=== PATIENT | male | born 1995 | race Caucasian/White ===

== ENCOUNTER 2021-09-21 10:42 | Emergency (ER) | payer SELFPAY ==
[2021-09-21 10:51] VITALS: BP 145/84; PULSE 86; RESP 24; TEMP 35.8; O2SAT 100
[2021-09-21 11:11] VITALS: BP 131/95; PULSE 114; RESP 24; O2SAT 100
[2021-09-21 11:17] VITALS: TEMP 36.4
--- NOTE | 2021-09-21 11:17 | ED_ITS ---
Documented by User: JACQUELIN Ibarra 09/22/21 07:25 HPI - Nausea/Vomiting/Diarrhea General: Chief complaint: Abdominal Pain Stated complaint: Throwing up blood, stomach cramps, SOB Time Seen by Provider: 09/21/21 10:57 History of Present Illness: Patient is a 26-year-old male who comes to the ED with nausea vomiting and abdominal cramping. Symptoms started 2 days ago. He has had nausea and vomiting for 2 days. Denies any known sick contacts. His symptoms improved when taking a hot shower. He also reports having some abdominal cramping pain that is generalized throughout the abdomen. Patient does admit to being a daily marijuana user. He reports having a little bit of diarrhea yesterday. Denies any fever, body aches. Associated nausea: Yes Associated symtoms: Reports nausea; Denies change in vision, chest pain, dysuria, fatigue, headache(s) or palpitations Review of Systems Const: Denies: fever(s), chills or fatigue Eyes: Denies: change in vision or eye discomfort ENMT: Denies: throat pain, odynophagia, nasal discharge or nasal congestion Card: Denies: chest pain, palpitations, edema, swelling of feet/ankles, dyspnea on exertion or orthopnea Resp: Denies: dyspnea, productive cough or non-productive cough GI: Reports: nausea, vomiting, diarrhea and GI cramping; Denies: abdominal pain, constipation or hematochezia : Denies: flank pain, difficulty urinating, dysuria or hematuria Musc: Denies: neck pain, back pain or extremity swelling Skin/Breast: Denies: rash or new lesions Neuro: Denies: headache(s), numbness in extremities or weakness in extremities PFS ED PFSH: Medical History No pertinent family history Surgical History No pertinent past surgical history Physical Exam Const: COMMON NORMALS: patient oriented x3 and alert GENERAL APPEARANCE: cooperative and in distress (Patient appears sick and is actively vomiting during exam) HENMT: COMMON NORMALS: normocephalic HEAD & SCALP: normocephalic MOUTH: Normal oral and palatal mucosa present THROAT: posterior oropharynx normal and uvula midline Neck/C-Spine: COMMON NORMALS: supple GENERAL: Yes normal visual inspection Resp: COMMON NORMALS: normal respiratory effort, No retractions, No use of accessory muscles and clear to auscultation bilaterally AUSCULTATION: clear to auscultation bilaterally Cardio: COMMON NORMALS: regular rate, regular rhythm, S1 normal heart sound present, S2 normal heart sound present, No gallops present (Cardio), No clicks present (Cardio), No murmurs present (Cardio) and Peripheral pulses 2+ throughout RATE: regular rate RHYTHM: regular rhythm HEART SOUNDS: S1 normal heart sound present and S2 normal heart sound present PERIPHERAL PULSES: Peripheral pulses 2+ throughout GI: COMMON NORMALS: Normal to inspection, nondistended, normoactive bowel sounds present, Soft to palpation and no masses PALPATION: Yes Soft to palpation and Yes Tenderness to palpation present (GI) (Mild generalized throughout abdomen) : COMMON NORMALS: Yes no CVA tenderness BLADDER/KIDNEY EXAM: Yes no CVA tenderness Back/Pelvis: COMMON NORMALS: no CVA tenderness Extremity: COMMON NORMALS: normal to inspection Neuro: COMMON NORMALS: patient oriented x3 SENSORIUM/ORIENTATION: Yes alert GAIT: Yes Normal gait present Skin: GENERAL SKIN EXAM: dry skin Course Vital Signs: Vital signs: Vital Signs Temperature 97.6 F 09/21/21 11:17 Pulse Rate 78 09/21/21 14:53 Respiratory Rate 19 H 09/21/21 13:00 Blood Pressure 152/75 09/21/21 14:53 Pulse Oximetry 98 09/21/21 14:53 MDM - Nausea/Vomiting/Diarrhea Medical Decision Making Patient is a 26-year-old male who comes to the ED with nausea and vomiting and abdominal cramps. Symptoms started approximately 2 days ago. He admits to being a chronic daily marijuana user. He says that his only relief in symptoms is when he was taking a hot shower. Vital stable. Patient does appear ill and is actively vomiting during history and physical exam. He has some mild generalized tenderness throughout the abdomen but rest of exam is benign. White blood cell count 13.1. CBC, CMP and lipase are unremarkable. UA showed no signs of infection. Urine drug screen was positive for THC. CT of abdomen pelvis showed some mild gastroenteritis. Patient was given 2 L of IV fluids and some nausea meds and we were able to get his nausea and vomiting controlled. He could keep p.o. fluids down here in the ED, so he was stable for discharge home. He was diagnosed with cannabinoid hyperemesis syndrome and sent home with a prescription for Zofran. Patient also did not have a primary care physician and wanted me to refer him to PCP to get established with. I placed an order with case management for patient to be set up with a PCP. Return to ED precautions given. Patient understood and agreed with plan. Lab Data I reviewed the patient's lab results. : 09/21/21 11:16 09/21/21 11:16 Radiology Impressions Abdomen/Pelvis CT 09/21/21 11:38 IMPRESSION: 1. Mild diffuse mucosal thickening and hyperemia throughout the stomach and a very small amount of increased fluid in the distal small bowel and hyperemia of the vasa recta. Findings are most consistent with a mild gastroenteritis. 2. No ascites. 3. Normal appendix. 4. No adenopathy. Laboratory Results WBC 13.1 10^3/uL (4.0-10.0) H 09/21/21 11:16 RBC 5.56 10^6/uL (4.1-5.3) H 09/21/21 11:16 Hgb 17.3 g/dL (11.7-16.6) H 09/21/21 11:16 Hct 48.0 % (42.0-52.0) 09/21/21 11:16 MCV 86.3 fl (80-94) 09/21/21 11:16 MCH 31.1 pg (28.0-34.0) 09/21/21 11:16 MCHC 36.0 g/dL (30.0-36.0) 09/21/21 11:16 RDW 12.2 % (12.1-15.1) 09/21/21 11:16 Plt Count 280 10^3/cmm (130-400) 09/21/21 11:16 MPV 10.8 fL (7.4-10.4) H 09/21/21 11:16 Neut % (Auto) 76.1 % 09/21/21 11:16 Lymph % (Auto) 14.4 % 09/21/21 11:16 [place] % (Auto) 5.0 % 09/21/21 11:16 Eos % (Auto) 0.4 % 09/21/21 11:16 Baso % (Auto) 0.4 % 09/21/21 11:16 Neut # (Auto) 9.97 10^3/uL (1.8-7.7) H 09/21/21 11:16 Lymph # (Auto) 1.9 10^3/uL (0.8-4.8) 09/21/21 11:16 [place] # (Auto) 0.7 10^3/uL (0.2-0.9) 09/21/21 11:16 Eos # (Auto) 0.1 10^3/uL (0.0-0.8) 09/21/21 11:16 Baso # (Auto) 0.1 10^3/uL (0.0-0.1) 09/21/21 11:16 Nucleated RBC % (auto) 0 % 09/21/21 11:16 Nucleated RBCs # 0.0 /100WBC 09/21/21 11:16 Sodium 136 mmol/L (136-145) 09/21/21 11:16 Potassium 3.6 mmol/L (3.5-5.1) 09/21/21 11:16 Chloride 96 mmol/L (98-107) L 09/21/21 11:16 Carbon Dioxide 21 mmol/L (22-29) L 09/21/21 11:16 Anion Gap 22.6 (5-19) H 09/21/21 11:16 BUN 14 mg/dL (6-20) 09/21/21 11:16 Creatinine 1.0 mg/dL (0.7-1.2) 09/21/21 11:16 GFR Calculation 91.8 mL/min (90-130) 09/21/21 11:16 Glucose 123 mg/dL (65-115) H 09/21/21 11:16 Calculated Osmolality 284 mOsm/kg (285-295) L 09/21/21 11:16 Calcium 10.0 mg/dL (8.5-10.5) 09/21/21 11:16 Total Bilirubin 2.2 mg/dL (0.15-1.2) H 09/21/21 11:16 AST 25 U/L (0-40) 09/21/21 11:16 ALT 32 U/L (0-41) 09/21/21 11:16 Alkaline Phosphatase 84 IU/L (40-130) 09/21/21 11:16 Total Protein 8.4 g/dL (6.6-8.7) 09/21/21 11:16 Albumin 5.6 g/dL (3.5-5.2) H 09/21/21 11:16 Globulin 2.8 g/dL (1.3-4.6) 09/21/21 11:16 Lipase 22 U/L (13-60) 09/21/21 11:16 Urine Color Dark yellow (Yellow) 09/21/21 11:20 Urine Appearance Clear (CLEAR) 09/21/21 11:20 Urine pH 6.5 (5-7) 09/21/21 11:20 Ur Specific [place] 1.010 (1.005-1.030) 09/21/21 11:20 Urine Protein Neg (Negative) 09/21/21 11:20 Urine Glucose (UA) Norm (Normal) 09/21/21 11:20 Urine Ketones Negative (Negative) 09/21/21 11:20 Urine Blood Neg (Negative) 09/21/21 11:20 Urine Nitrate Negative (Negative) 09/21/21 11:20 Urine Bilirubin 1+ (Negative) H 09/21/21 11:20 Urine Urobilinogen 4 mg/dL (Negative) H 09/21/21 11:20 Ur Leukocyte Esterase Negative (Negative) 09/21/21 11:20 Urine Opiates Screen Negative ng/mL (Negative) 09/21/21 11:20 Ur Barbiturates Screen Negative ng/mL (Negative) 09/21/21 11:20 Ur Phencyclidine Scrn Negative ng/mL (Negative) 09/21/21 11:20 Ur Amphetamines Screen Negative ng/mL (Negative) 09/21/21 11:20 U Benzodiazepines Scrn Negative ng/mL (Negative) 09/21/21 11:20 Urine Cocaine Screen Negative ng/mL (Negative) 09/21/21 11:20 U Marijuana (THC) Screen Positive ng/mL (Negative) H 09/21/21 11:20 Discharge Plan Discharge Patient Disposition: Home Clinical Impression: Cannabinoid hyperemesis syndrome Condition: Stable Prescriptions: New ondansetron 4 mg tablet,disintegrating 4 mg PO Q8H PRN (Reason: nausea and vomiting) Qty: 15 0RF No Action Pepto-Bismol 262 mg/15 mL Suspension 262 - 524 mg PO PRN 0RF Discharge Orders: Discharge ED (Routine); Ordered 09/21/21 Ordered By: Morales Meléndez Referrals: Brent Blevins RN [Family Provider] - Discharge Diet: Regular Discharge Activity: Increase activity as tolerated Patient Instructions: Acute Nausea and Vomiting (ED) Activity Restrictions/Additional Instructions: Follow-up with medical provider as directed. Case management should contact you in the next several days to set up an appointment with a primary care physician. Make sure drink plenty fluids and stay hydrated. Take medications as prescribed. Return to the ER or your medical provider if condition worsens. Please read and understand discharge instructions. Thank you for choosing [facility] for your healthcare needs today. Please realize this is an emergency room and that we are providing you with a medical screening exam and this may not be complete and all inclusive of all the testing and or work up that you may need to determine your ailment or severity of your illness. It is very important that you follow up as instructed or that you return to the Emergency Department should you have concerns or if your condition changes or worsens in any way. Coding Level of Care Code ED Technical Designer for Chg Fwd Exam Comprehensive Documented by User: Edd Perez DO 09/22/21 08:31 HPI - Nausea/Vomiting/Diarrhea General: Chief complaint: Abdominal Pain Stated complaint: Throwing up blood, stomach cramps, SOB Time Seen by Provider: 09/21/21 10:57 [facility] ED PFSH: Medical History No pertinent family history Surgical History No pertinent past surgical history Course Vital Signs: Vital signs: Vital Signs Temperature 97.6 F 09/21/21 11:17 Pulse Rate 78 09/21/21 14:53 Respiratory Rate 19 H 09/21/21 13:00 Blood Pressure 152/75 09/21/21 14:53 Pulse Oximetry 98 09/21/21 14:53 MDM - Nausea/Vomiting/Diarrhea Medical Decision Making Patient is a 26-year-old male who comes to the ED with nausea and vomiting and abdominal cramps. Symptoms started approximately 2 days ago. He admits to being a chronic daily marijuana user. He says that his only relief in symptoms is when he was taking a hot shower. Vital stable. Patient does appear ill and is actively vomiting during history and physical exam. He has some mild generalized tenderness throughout the abdomen but rest of exam is benign. White blood cell count 13.1. CBC, CMP and lipase are unremarkable. UA showed no signs of infection. Urine drug screen was positive for THC. CT of abdomen pelvis showed some mild gastroenteritis. Patient was given 2 L of IV fluids and some nausea meds and we were able to get his nausea and vomiting controlled. He could keep p.o. fluids down here in the ED, so he was stable for discharge home. He was diagnosed with cannabinoid hyperemesis syndrome and sent home with a prescription for Zofran. Patient also did not have a primary care physician and wanted me to refer him to PCP to get established with. I placed an order with case management for patient to be set up with a PCP. Return to ED precautions given. Patient understood and agreed with plan. Chart reviewed and patient discussed with midlevel. Agree with assessment and plan. Lab Data : 09/21/21 11:16 09/21/21 11:16 Radiology Impressions Abdomen/Pelvis CT 09/21/21 11:38 IMPRESSION: 1. Mild diffuse mucosal thickening and hyperemia throughout the stomach and a very small amount of increased fluid in the distal small bowel and hyperemia of the vasa recta. Findings are most consistent with a mild gastroenteritis. 2. No ascites. 3. Normal appendix. 4. No adenopathy. Laboratory Results WBC 13.1 10^3/uL (4.0-10.0) H 09/21/21 11:16 RBC 5.56 10^6/uL (4.1-5.3) H 09/21/21 11:16 Hgb 17.3 g/dL (11.7-16.6) H 09/21/21 11:16 Hct 48.0 % (42.0-52.0) 09/21/21 11:16 MCV 86.3 fl (80-94) 09/21/21 11:16 MCH 31.1 pg (28.0-34.0) 09/21/21 11:16 MCHC 36.0 g/dL (30.0-36.0) 09/21/21 11:16 RDW 12.2 % (12.1-15.1) 09/21/21 11:16 Plt Count 280 10^3/cmm (130-400) 09/21/21 11:16 MPV 10.8 fL (7.4-10.4) H 09/21/21 11:16 Neut % (Auto) 76.1 % 09/21/21 11:16 Lymph % (Auto) 14.4 % 09/21/21 11:16 [place] % (Auto) 5.0 % 09/21/21 11:16 Eos % (Auto) 0.4 % 09/21/21 11:16 Baso % (Auto) 0.4 % 09/21/21 11:16 Neut # (Auto) 9.97 10^3/uL (1.8-7.7) H 09/21/21 11:16 Lymph # (Auto) 1.9 10^3/uL (0.8-4.8) 09/21/21 11:16 [place] # (Auto) 0.7 10^3/uL (0.2-0.9) 09/21/21 11:16 Eos # (Auto) 0.1 10^3/uL (0.0-0.8) 09/21/21 11:16 Baso # (Auto) 0.1 10^3/uL (0.0-0.1) 09/21/21 11:16 Nucleated RBC % (auto) 0 % 09/21/21 11:16 Nucleated RBCs # 0.0 /100WBC 09/21/21 11:16 Sodium 136 mmol/L (136-145) 09/21/21 11:16 Potassium 3.6 mmol/L (3.5-5.1) 09/21/21 11:16 Chloride 96 mmol/L (98-107) L 09/21/21 11:16 Carbon Dioxide 21 mmol/L (22-29) L 09/21/21 11:16 Anion Gap 22.6 (5-19) H 09/21/21 11:16 BUN 14 mg/dL (6-20) 09/21/21 11:16 Creatinine 1.0 mg/dL (0.7-1.2) 09/21/21 11:16 GFR Calculation 91.8 mL/min (90-130) 09/21/21 11:16 Glucose 123 mg/dL (65-115) H 09/21/21 11:16 Calculated Osmolality 284 mOsm/kg (285-295) L 09/21/21 11:16 Calcium 10.0 mg/dL (8.5-10.5) 09/21/21 11:16 Total Bilirubin 2.2 mg/dL (0.15-1.2) H 09/21/21 11:16 AST 25 U/L (0-40) 09/21/21 11:16 ALT 32 U/L (0-41) 09/21/21 11:16 Alkaline Phosphatase 84 IU/L (40-130) 09/21/21 11:16 Total Protein 8.4 g/dL (6.6-8.7) 09/21/21 11:16 Albumin 5.6 g/dL (3.5-5.2) H 09/21/21 11:16 Globulin 2.8 g/dL (1.3-4.6) 09/21/21 11:16 Lipase 22 U/L (13-60) 09/21/21 11:16 Urine Color Dark yellow (Yellow) 09/21/21 11:20 Urine Appearance Clear (CLEAR) 09/21/21 11:20 Urine pH 6.5 (5-7) 09/21/21 11:20 Ur Specific [place] 1.010 (1.005-1.030) 09/21/21 11:20 Urine Protein Neg (Negative) 09/21/21 11:20 Urine Glucose (UA) Norm (Normal) 09/21/21 11:20 Urine Ketones Negative (Negative) 09/21/21 11:20 Urine Blood Neg (Negative) 09/21/21 11:20 Urine Nitrate Negative (Negative) 09/21/21 11:20 Urine Bilirubin 1+ (Negative) H 09/21/21 11:20 Urine Urobilinogen 4 mg/dL (Negative) H 09/21/21 11:20 Ur Leukocyte Esterase Negative (Negative) 04/26/22 11:20 Urine Opiates Screen Negative ng/mL (Negative) 09/21/21 11:20 Ur Barbiturates Screen Negative ng/mL (Negative) 09/21/21 11:20 Ur Phencyclidine Scrn Negative ng/mL (Negative) 09/21/21 11:20 Ur Amphetamines Screen Negative ng/mL (Negative) 09/21/21 11:20 U Benzodiazepines Scrn Negative ng/mL (Negative) 09/21/21 11:20 Urine Cocaine Screen Negative ng/mL (Negative) 09/21/21 11:20 U Marijuana (THC) Screen Positive ng/mL (Negative) H 09/21/21 11:20 Discharge Plan Discharge Patient Disposition: Home Clinical Impression: Cannabinoid hyperemesis syndrome Condition: Stable Prescriptions: New ondansetron 4 mg tablet,disintegrating 4 mg PO Q8H PRN (Reason: nausea and vomiting) Qty: 15 0RF No Action Pepto-Bismol 262 mg/15 mL Suspension 262 - 524 mg PO PRN 0RF Discharge Orders: Discharge ED (Routine); Ordered 09/21/21 Ordered By: Morales Meléndez Referrals: Brent Blevins RN [Family Provider] - Discharge Diet: Regular Discharge Activity: Increase activity as tolerated Patient Instructions: Acute Nausea and Vomiting (ED) Activity Restrictions/Additional Instructions: Follow-up with medical provider as directed. Case management should contact you in the next several days to set up an appointment with a primary care physician. Make sure drink plenty fluids and stay hydrated. Take medications as prescribed. Return to the ER or your medical provider if condition worsens. Ple ase read and understand discharge instructions. Thank you for choosing [facility] for your healthcare needs today. Please realize this is an emergency room and that we are providing you with a medical screening exam and this may not be complete and all inclusive of all the testing and or work up that you may need to determine your ailment or severity of your illness. It is very important that you follow up as instructed or that you return to the Emergency Department should you have concerns or if your condition changes or worsens in any way. Coding Level of Care Code ED Technical Designer for Silva Fwchristina Exam Comprehensive
[2021-09-21] MEDS: metoclopramide 5 mg/mL SDV 2 mL 10 MG IVP (11:22)
[2021-09-21] MEDS: sodium chloride 0.9% 1,000 ML 999 ML IV ×2 (11:22→12:29)
[2021-09-21] MEDS: haloperidol inj 5 mg/mL INJ 1 mL 2.5 MG IVP (11:22)
[2021-09-21 11:24] LABS: Basophils # 0.1 10^3/uL (0.0-0.1); Basophils % 0.4 %; Eosinophils # 0.1 10^3/uL (0.0-0.8); Eosinophils % 0.4 %; Hemoglobin 17.3 g/dL (11.7-16.6); Lymphocytes # 1.9 10^3/uL (0.8-4.8); Lymphocytes % 14.4 %; Mean Corpuscular Hemoglobin 31.1 pg (28.0-34.0); Mean Corpuscular Volume 86.3 fl (80-94); Mean Platelet Volume 10.8 fL (7.4-10.4); Monocytes # 0.7 10^3/uL (0.2-0.9); Neutrophils # 9.97 10^3/uL (1.8-7.7); Neutrophils % 76.1 %; Nucleated Red Blood Cells % 0 %; Platelet Count 280 10^3/cmm (130-400); Red Blood Count 5.56 10^6/uL (4.1-5.3); Red Cell Distribution Width 12.2 % (12.1-15.1); White Blood Count 13.1 10^3/uL (4.0-10.0)
[2021-09-21 11:30] VITALS: BP 135/81; PULSE 61; RESP 15; O2SAT 92
--- NOTE | 2021-09-21 11:38 | CT_ITS ---
WS: [id number] CT ABDOMEN AND PELVIS WITH CONTRAST HISTORY: n/v and abdominal cramping pain TECHNIQUE: Imaging performed of the abdomen and pelvis with IV contrast. Single phase imaging of the abdomen. Coronal and sagittal reformats are submitted. All CT scans at [facility] use at [facility] [facility] one of these dose optimization techniques: automated exposure control; mA and/or kV adjustment per patient size (includes targeted exams where dose is matched to clinical indication); or iterative re construction. IV CONTRAST: Omnipaque 300; 95 mL IV. Oral contrast: No DLP: 1492.94 mGy.cm COMPARISON: None available. Lower thorax: Lung bases are clear. Heart is normal size. No hiatal hernia. Liver/biliary system: Normal size with no intrahepatic dilatation. Gallbladder: Normal. No gallstones or wall thickening. No pericholecystic fluid. Pancreas: Normal size pancreas and pancreatic duct. No adjacent inflammation. Spleen: Normal size spleen. No mass or infarct. Adrenal glands: Normal. Right kidney: Normal. Left kidney: Normal. Aorta: Normal enhancement of aorta and the mesenteric arteries. LEFT renal vein is retroaortic. Lymphadenopathy: None. Free fluid: None. GI tract: Mild diffuse wall thickening of the stomach. There is also very small mild hyperemia throug hout the and stomach mucosa. No obstruction. No small bowel obstruction. There is a small amount of i ncreased fluid within the distal small bowel. There is increased density within portions of the GI tr act which is probably medicinal. No oral contrast was given for this examination. The appendix is tru ntified and normal. There is very mild hyperemia within the vasa recta which suggest inflammatory pro cess. Abdominal wall: Unremarkable abdominal wall. No hernia. Pelvis: No free fluid or adenopathy within the pelvis. Nondistended urinary bladder. Bones: Unremarkable. CT/CT abdomen pelvis w con* [id number] IMPRESSION: 1. Mild diffuse mucosal thickening and hyperemia throughout the stomach and a very small amount of increased fluid in the distal small bowel and hyperemia of the vasa recta. Findings are most consistent with a mild gastroenteritis. 2. No ascites. 3. Normal appendix. 4. No adenopathy.
[2021-09-21 11:43] LABS: Alanine Aminotransferase 32 U/L (0-41); Albumin Level 5.6 g/dL (3.5-5.2); Alkaline Phosphatase 84 IU/L (40-130); Anion Gap 22.6 (5-19); Aspartate Amino Transferase 25 U/L (0-40); Blood Urea Nitrogen 14 mg/dL (6-20); Carbon Dioxide 21 mmol/L (22-29); Chloride 96 mmol/L (98-107); Globulin 2.8 g/dL (1.3-4.6); Glomerular Filtration Rate 91.8 mL/min (90-130); Glucose 123 mg/dL (65-115); Lipase 22 U/L (13-60); Osmolality Calculated 284 mOsm/kg (285-295); Potassium 3.6 mmol/L (3.5-5.1); Sodium 136 mmol/L (136-145); Total Bilirubin 2.2 mg/dL (0.15-1.2); Total Protein 8.4 g/dL (6.6-8.7)
[2021-09-21 11:49] LABS: Add Urine Microscopic? NO; Charge for UA Resulting for Rev
[2021-09-21 11:55] LABS: Bilirubin Urine 1+ (Negative); Blood Urine Neg (Negative); Glucose Urine UA Norm (Normal); Ketones Urine Negative (Negative); Nitrate Urine Negative (Negative); Protein Urine Neg (Negative); Urine Appearance Clear (CLEAR); Urine Color Dark Yellow (Yellow); pH Urine 6.5 (5-7)
[2021-09-21 11:56] LABS: Leukocyte Esterase Urine Negative (Negative); Urobilinogen Urine 4 mg/dL (Negative)
[2021-09-21] MEDS: iohexol 300 mg/mL 100 mL Btl IV (11:58)
[2021-09-21] MEDS: diphenhydrAMINE 50 mg/mL SDV 1mL 25 MG IVP (12:28)
[2021-09-21 13:00] VITALS: BP 118/39; PULSE 65; RESP 19; O2SAT 98
[2021-09-21] MEDS: ondansetron 2 mg/ML SDV 2 mL 4 MG IVP (13:47)
[2021-09-21 14:16] LABS: Amphetamines Screen Urine Negative (Negative); Barbiturates Screen Urine Negative (Negative); Benzodiazepines Screen Urine Negative (Negative); Cocaine Screen Urine Negative (Negative); Opiate Screen Urine Negative (Negative); PCP Screen Urine Negative (Negative); THC Screen Urine Positive (Negative)
[2021-09-21 14:53] VITALS: BP 152/75; PULSE 78; O2SAT 98
--- NOTE | 2021-09-23 12:55 | DCPLANNER ---
medical laboratory manager had message to speak with patient about getting established with a primary care physician. medical laboratory manager called phone number [phone] - phone number is disconnected and no longer in service. medical laboratory manager was unable to speak with patient or leave a voicemail for patient.
== END 2021-09-21 14:54 | disposition home or self-care (01) ==
PROVIDERS: Emergency Provider Physician Assistant; Family Provider Nurse Practitioner Family
DX: R11.2 Nausea with vomiting, unspecified (principal); F12.90 Cannabis use, unspecified, uncomplicated
CPT/HCPCS: 36415; 74177; 80053; 80306; 81003; 83690; 85025; 87040; 96361; 96374; 96375; 99284; J1200; J1630; J2405; J2765; J2930; J7030; Q9967